=== PATIENT | male | born 1980 | race Caucasian/White ===

== ENCOUNTER 2017-11-16 13:45 | Emergency (ER) | payer OTHER ==
[~2017-11-16] VITALS: Ht 182.9 cm; Wt 96.2 kg
[2017-11-16 13:50] VITALS: BP 154/97
--- NOTE | 2017-11-16 14:01 | NUR ---
PT AMBULATES TO ER BED 3
--- NOTE | 2017-11-16 14:03 | NUR ---
REPORT GIVEN TO ABDULAZIZ SALAZAR
--- NOTE | 2017-11-16 14:08 | NUR ---
PT C/O R INGUINAL PAIN WITH LUMP X 2 WKS; DX WITH SYPHILLIS, AND HERPES AT AN URGENT CARE ON 10/24/17. PT ALSO REPORTS RASH LIKE REDNESS TO TIP OF PENIS. PT HAS LUMP TI RT INGUINAL AREA, TENDER TO DEEP PALPATION. TIP OF PENIS HAS SMALL SPOT LIKE REDNESS. DENIES FEVER OR PENILE DISCHARGE. NAD NOTED/STATED OTHERWISE
[2017-11-16] MEDS ORDERED: PENICILLIN G BENZATHINE L-A 2.4 MU/4 ML SYR IM ONE (14:35)
[2017-11-16] MEDS ORDERED: PENICILLIN G BENZATHINE L-A 1.2 MU/2 ML SYR IM ONE (14:50)
[2017-11-16 15:10] VITALS: BP 144/88
== END 2017-11-16 15:21 | disposition home or self-care (01) ==
LOC: MED 13:45
DX: Z20.2 Contact with and (suspected) exposure to infections with a predominantly sexual mode of transmission (principal); A55 Chlamydial lymphogranuloma (venereum); E11.9 Type 2 diabetes mellitus without complications
CPT/HCPCS: 81002; 96372; 99283; J0561